=== PATIENT | female | born 1950 | race Caucasian/White ===

== ENCOUNTER 2018-12-18 08:46 | Inpatient (IN) | payer OTHER ==
[2018-12-18] MEDS ORDERED: NA CHLORIDE 0.9% 500 ML ONE (09:18)
[2018-12-18] MEDS ORDERED: ONDANSETRON 4 MG/2 ML VIAL ONE ×2 (09:18→13:03)
[2018-12-18 09:30] LABS: Absolute Lymphocytes (CBC) 0.9 K/uL (0.7-4.9); Absolute Monocytes 0.7 K/uL (0.1-1.3); Basophils % 0.2 % (0-1.3); Eosinophils % 0.3 % (0-4.4); Hematocrit 47.8 % (36.0-45.0); MPV 8.4 fL (7.6-11.3); Monocytes % 6.2 % (3.3-12.3); RBC Red Blood Cell Count 5.28 M/uL (3.86-4.86)
[2018-12-18 09:59] LABS: Albumin 4.5 g/dL (3.4-5.0); Bilirubin Direct 0.2 mg/dL (0-0.2); Bilirubin Total 1.3 mg/dL (0.2-1.0)
[2018-12-18 10:25] LABS: Blood Morphology Comment NOT SEEN (NOT SEEN); Platelet Estimate ADEQ; Urine White Blood Cell Casts OK
[2018-12-18] MEDS ORDERED: PROMETHAZINE 25 MG/ML VIAL ONE ×2 (10:31→11:35)
--- NOTE | 2018-12-18 11:58 | RAD REPORT ---
EXAM DESCRIPTION: CT - Abdomen Pelvis W Contrast - 12/18/2018 11:42 am CLINICAL HISTORY: Abdominal pain. vomiting COMPARISON: None. TECHNIQUE: Computed axial tomography of the abdomen and pelvis was obtained. 100 cc Isovue-300 is ad ministered intravenously. Oral contrast was given. All CT scans are performed using dose optimization technique as appropriate and may include automated exposure control or mA/KV adjustment according to patient size. FINDINGS: The gallbladder has been removed. Mild prominence of the intrahepatic biliary tree may be physiologic . The liver, spleen, pancreas, adrenals and kidneys appear unremarkable. Small right renal cyst The stomach is distended. Marked dilatation of jejunum and portion of the ileum is present. Mid and distal ileum is decompresse d. A small amount of ascites A 16 millimeter left adrenal mass IMPRESSION: High-grade small bowel obstruction 16 millimeter left adrenal mass. Further evaluation with MRI could be obtained to rule in an adenoma
--- NOTE | 2018-12-18 12:19 | ER ---
Nurse's Notes [facility] Name: Cady Salgado Age: 68 yrs Sex: Female : 1950 Arrival Date: 12/18/2018 Time: 08:49 Bed 16 Private MD: out of town, doctor Diagnosis: Small Bowel Obstruction Presentation: 12/18 08:54 Presenting complaint: Patient states: abd pain since yesterday and vomiting today. aa5 08:54 Transition of care: patient was not received from another setting of care. Onset of aa5 symptoms was December 2018. Risk Assessment: Do you want to hurt yourself or someone else? Patient reports no desire to harm self or others. Initial Sepsis Screen: Does the patient meet any 2 criteria? No. Patient's initial sepsis screen is negative. Does the patient have a suspected source of infection? No. Patient's initial sepsis screen is negative. Care prior to arrival: None. 08:54 Method Of Arrival: Ambulatory aa5 08:54 Acuity: JAY 3 aa5 Historical: - Allergies: 08:54 Bactrim; aa5 - PMHx: 08:54 Asthma; Hypertension; aa5 - PSHx: 08:54 Cholecystectomy; Ileus/abd adhesions; cataracts; aa5 - Immunization history:: Flu vaccine is up to date. - Social history:: Smoking status: Patient/guardian denies using tobacco. - Family history:: not pertinent. - Ebola Screening: : No symptoms or risks identified at this time. - Hospitalizations: : No recent hospitalization is reported. Screenin:55 Abuse screen: Denies threats or abuse. Nutritional screening: No deficits noted. aa5 Tuberculosis screening: No symptoms or risk factors identified. Fall Risk None identified. Assessment: 08:55 General: Appears uncomfortable, Behavior is calm, cooperative. Pain: Complains of pain aa5 in right upper quadrant and left upper quadrant Pain does not radiate. Pain currently is 3 out of 10 on a pain scale. Quality of pain is described as burning, Pain began 1 day ago. Is continuous. Neuro: Level of Consciousness is awake, alert, obeys commands, Oriented to person, place, time, situation. Cardiovascular: Heart tones S1 S2 present Rhythm is regular. Respiratory: Airway is patent Respiratory effort is even, unlabored, Respiratory pattern is regular, symmetrical. GI: Abdomen is round non-distended, Last BM was December 17, 2018. Bowel sounds present X 4 quads. Abd is soft X 4 quads Abdomen is tender to palpation in right upper quadrant, left upper quadrant, right lower quadrant and left lower quadrant Reports nausea, vomiting, Patient currently denies diarrhea. : No signs and/or symptoms were reported regarding the genitourinary system. EENT: No signs and/or symptoms were reported regarding the EENT system. Derm: Skin is pink, warm \T\ dry. Musculoskeletal: Range of motion: intact in all extremities. 09:30 Reassessment: Patient is alert, oriented x 3, equal unlabored respirations, skin aa5 warm/dry/pink. Oral contrast at bedside, pt instructed not to drink at this time until nausea has improved, pt verbalized understanding. . 09:47 General: Appears in no apparent distress. uncomfortable, Behavior is calm, cooperative, hj appropriate for age. Pain: Complains of pain in left lower quadrant and right lower quadrant and left upper quadrant and right upper quadrant Pain currently is 3 out of 10 on a pain scale. Quality of pain is described as burning, Pain began 1 day ago. Is continuous. Neuro: Level of Consciousness is awake, alert, obeys commands, Oriented to person, place, time, situation, Appropriate for age. Cardiovascular: Heart tones S1 S2 present Rhythm is regular. Respiratory: Airway is patent Respiratory effort is even, unlabored, Respiratory pattern is regular, symmetrical. GI: Abdomen is round non-distended, Bowel sounds present X 4 quads. Abd is soft X 4 quads Abdomen is tender to palpation Reports lower abdominal pain, upper abdominal pain, nausea. : No signs and/or symptoms were reported regarding the genitourinary system. EENT: No signs and/or symptoms were reported regarding the EENT system. Derm: No signs and/or symptoms reported regarding the dermatologic system. Musculoskeletal: No signs and/or symptoms reported regarding the musculoskeletal system. 10:09 Reassessment: Patient is alert, oriented x 3, equal unlabored respirations, skin hj warm/dry/pink. pt still drinking the oral contrast; able to tolerate it;. 10:18 Reassessment: Patient is alert, oriented x 3, equal unlabored respirations, skin hj warm/dry/pink. able to finished contrast; biodiesel processing technician informed;. 11:51 Reassessment: per biodiesel processing technician, pt vomited x [address] started;. hj 13:38 Reassessment: surgeon in room with pt and family for POC;. hj 14:54 Reassessment: Patient and/or family updated on plan of care and expected duration. Pain hj level reassessed. Patient is alert, oriented x 3, equal unlabored respirations, skin warm/dry/pink. Patient states feeling better. Patient states symptoms have improved. Vital Signs: 09:00 BP 121 / 90; Pulse 74; Resp 18 S; Temp 97.6(O); Pulse Ox 100% on R/A; Weight 64.41 kg aa5 (R); Height 5 ft. 8 in. (172.72 cm) (R); Pain 3/10; 10:10 BP 127 / 95; Pulse 66; Resp 18; Pulse Ox 100% on R/A; hj 11:05 BP 125 / 89; Pulse 65; Resp 18; Pulse Ox 100% on R/A; hj 12:30 BP 135 / 85; Pulse 75; Resp 18; Pulse Ox 100% on R/A; hj 13:37 BP 163 / 87; Pulse 71; Resp 18; Pulse Ox 96% on R/A; hj 14:53 BP 108 / 90; Pulse 64; Resp 18; Pulse Ox 98% on R/A; hj 09:00 Body Mass Index 21.59 (64.41 kg, 172.72 cm) aa5 ED Course: 08:49 Patient arrived in ED. mr 08:49 out of town, doctor is Private Physician. mr 08:53 Arm band placed on Patient placed in an exam room, on a stretcher. aa5 08:54 Darwin Farmer MD is Attending Physician. rn 09:01 Verena Avila, ELAINE is Primary Nurse. aa5 09:02 Triage completed. aa5 09:21 Patient has correct armband on for positive identification. Placed in gown. Bed in low 5 position. Call light in reach. Side rails up X 1. Adult w/ patient. Warm blanket given. Pulse ox on. NIBP on. 09:21 Initial lab(s) drawn, by ky, sent to lab. Inserted saline lock: 22 gauge in left 5 antecubital area, using aseptic technique. Blood collected. 09:22 Basic Metabolic Panel Sent. mh5 09:22 CBC with Diff Sent. 5 09:22 Hepatic Function Sent. 5 09:22 Lipase Sent. [facility] 09:28 Inserted saline lock: 20 gauge in right antecubital area, using aseptic technique. aa5 Flushed 22 G L AC with saline and pt c/o pain to site, swelling noted to site, 22 G to L AC dc'd, catheter intact, pressure dressing applied. 09:42 Report given to Chevy Casanova RN. aa5 11:41 CT completed. Patient tolerated procedure well. Patient moved to CT via stretcher. jg6 Patient moved back from CT. 11:42 CT Abd/Pelvis - W/Contrast In Process Unspecified. EDNE 12:19 Elfego Vick MD is Hospitalizing Provider. rn 13:31 NGT: inserted 12 Fr. verified placement of air over stomach, verified return of gastric jl7 contents, to intermittent suction. Returned gastric contents. Patient tolerated well. Administered Medications: 09:28 Drug: Zofran 4 mg Route: IVP; Site: right antecubital; 5 09:35 Follow up: Response: No adverse reaction; Nausea is decreased 09:28 Drug: NS 0.9% 500 ml Route: IV; Rate: bolus; Site: right antecubital; aa5 09:35 Follow up: IV Status: Infusion continued 10:24 Drug: Phenergan 12.5 mg Route: IVP; Site: right antecubital; hj 11:22 Follow up: Response: No adverse reaction; Nausea unchanged 11:24 Drug: Phenergan 12.5 mg Route: IVP; Site: right antecubital; hj 11:26 Follow up: Response: No adverse reaction; Nausea is decreased Outcome: 12:19 Decision to Hospitalize by Provider. rn 15:19 Patient left the ED. iw Signatures: Dispatcher [employer] EDNE Nayeli Orellana Irene, RN RN iw Nieto, Roman, MD MD rn Calderon, Audri, RN RN aa5 Joaquin, Henry, RN RN hj Martinez, Maria Nely Wu RN RN jl7 Clara Allison jg6 Corrections: (The following items were deleted from the chart) 09:08 09:00 BP 121 / 90; Pulse 74bpm; Resp 18bpm; Spontaneous; Pulse Ox 100% RA; 64.41 kg aa5 Reported; Height 5 ft. 8 in. Reported; BMI: 21.5; Pain 3/10; aa5
--- NOTE | 2018-12-18 12:19 | EDPHYS ---
Physician Documentation [facility] Name: Cady Salgado Age: 68 yrs Sex: Female : 1950 Arrival Date: 12/18/2018 Time: 08:49 Bed 16 Private MD: out of town, doctor ED Physician Darwin Farmer HPI: 12/18 09:02 This 68 yrs old Female presents to ER via Ambulatory with complaints of rn Vomiting, Abdominal Pain. 09:02 The patient presents to the emergency department with nausea, vomiting, abdominal pain. rn Onset: The symptoms/episode began/occurred yesterday. Possible causes: unknown. The symptoms are aggravated by nothing. The symptoms are alleviated by nothing. Severity of symptoms: At their worst the symptoms were moderate in the emergency department the symptoms are unchanged. The patient has experienced similar episodes in the past. REports several episodes in past, has had combinations of ileus and volvulus, reports is traveling, began with upper abd pain and vomiting yesterday, no diarrhea, similar to previous episodes. . Historical: - Allergies: 08:54 Bactrim; aa5 - PMHx: 08:54 Asthma; Hypertension; aa5 - PSHx: 08:54 Cholecystectomy; Ileus/abd adhesions; cataracts; aa5 - Immunization history:: Flu vaccine is up to date. - Social history:: Smoking status: Patient/guardian denies using tobacco. - Family history:: not pertinent. - Ebola Screening: : No symptoms or risks identified at this time. - Hospitalizations: : No recent hospitalization is reported. ROS: 09:02 Constitutional: Negative for fever, chills, and weight loss, Eyes: + ongoing eye rn problem Cardiovascular: Negative for chest pain, palpitations, and edema, Respiratory: Negative for shortness of breath, cough, wheezing, and pleuritic chest pain, Abdomen/GI: + abdominal pain/nausea/vomiting, negative for diarrhea MS/Extremity: Negative for injury and deformity, Skin: Negative for injury, rash, and discoloration, Neuro: + generalized weakness Exam: 09:02 Constitutional: This is a well developed, well nourished patient who is awake, alert, rn and in no acute distress. Head/Face: Normocephalic, atraumatic. Eyes: Periorbital areas with no swelling, redness, or edema. ENT: dry MM Respiratory: No increased work of breathing, no retractions or nasal flaring. Abdomen/GI: soft, mild epigastric and LUQ tenderness, no rebound Skin: Warm, dry Neuro: Awake and alert, GCS 15. Vital Signs: 09:00 BP 121 / 90; Pulse 74; Resp 18 S; Temp 97.6(O); Pulse Ox 100% on R/A; Weight 64.41 kg aa5 (R); Height 5 ft. 8 in. (172.72 cm) (R); Pain 3/10; 10:10 BP 127 / 95; Pulse 66; Resp 18; Pulse Ox 100% on R/A; hj 11:05 BP 125 / 89; Pulse 65; Resp 18; Pulse Ox 100% on R/A; hj 12:30 BP 135 / 85; Pulse 75; Resp 18; Pulse Ox 100% on R/A; hj 13:37 BP 163 / 87; Pulse 71; Resp 18; Pulse Ox 96% on R/A; hj 14:53 BP 108 / 90; Pulse 64; Resp 18; Pulse Ox 98% on R/A; hj 09:00 Body Mass Index 21.59 (64.41 kg, 172.72 cm) aa5 MDM: 08:54 Patient medically screened. rn 12:18 Differential diagnosis: bowel obstruction. Data reviewed: vital signs, nurses notes, information technology internship test result(s), radiologic studies, CT scan, and as a result, I will admit patient. Counseling: I had a detailed discussion with the patient and/or guardian regarding: the historical points, exam findings, and any diagnostic results supporting the discharge/admit diagnosis, lab results, radiology results, the need for further work-up and treatment in the hospital. Response to treatment: the patient's symptoms have mildly improved after treatment, and as a result, I will admit patient. Admission orders: after a detailed discussion of the patient's condition and case, the admit orders are written by me. ED course: Consulted with Dr. Vick, will admit to his service, requested NG tube, and will visit with patient shortly. . 12/18 09:02 Order name: Basic Metabolic Panel; Complete Time: 10:29 rn 12/18 09:02 Order name: CBC with Diff; Complete Time: 10:29 rn 12/18 09:02 Order name: Hepatic Function; Complete Time: 10:29 rn 12/18 09:02 Order name: Lipase; Complete Time: 10:29 rn 12/18 09:02 Order name: CT Abd/Pelvis - W/Contrast; Complete Time: 12:03 rn 12/18 09:32 Order name: CBC Smear Scan; Complete Time: 10:29 EDMS 12/18 09:02 Order name: IV Saline Lock; Complete Time: 09:22 rn 12/18 09:02 Order name: Labs collected and sent; Complete Time: 09:22 rn 12/18 13:31 Order name: XRAY Abdomen 1 View (KUB) 12/18 14:29 Order name: RAD EDMS 12/18 12:04 Order name: NG Tube; Complete Time: 13:30 rn Administered Medications: 09:28 Drug: Zofran 4 mg Route: IVP; Site: right antecubital; aa5 09:35 Follow up: Response: No adverse reaction; Nausea is decreased 09:28 Drug: NS 0.9% 500 ml Route: IV; Rate: bolus; Site: right antecubital; aa5 09:35 Follow up: IV Status: Infusion continued hj 10:24 Drug: Phenergan 12.5 mg Route: IVP; Site: right antecubital; hj 11:22 Follow up: Response: No adverse reaction; Nausea unchanged hj 11:24 Drug: Phenergan 12.5 mg Route: IVP; Site: right antecubital; hj 11:26 Follow up: Response: No adverse reaction; Nausea is decreased Disposition: 12/18/18 12:19 Hospitalization ordered by Elfego Vick for Inpatient Admission. Preliminary diagnosis is Small Bowel Obstruction. - Bed requested for Telemetry/MedSurg (Inpatient). - Status is Inpatient Admission. iw - Condition is Stable. - Problem is new. - Symptoms have improved. UTI on Admission? No Signatures: Dispatcher [employer] EDMS Louisa Spear Irene, Darwin Fowler RN, MD MD rn Calderon, Audri, RN RN aa5 Chevy Casanova RN RN Corrections: (The following items were deleted from the chart) 14:39 12:19 Hospitalization Ordered by Elfego Vick MD for Inpatient Admission. Preliminary bd diagnosis is Small Bowel Obstruction. Bed requested for Telemetry/MedSurg (Inpatient). Status is Inpatient Admission. Condition is Stable. Problem is new. Symptoms have improved. UTI on Admission? No. rn 15:19 14:39 12/18/2018 12:19 Hospitalization Ordered by Elfego Vick MD for Inpatient iw Admission. Preliminary diagnosis is Small Bowel Obstruction. Bed requested for Telemetry/MedSurg (Inpatient). Status is Inpatient Admission. Condition is Stable. Problem is new. Symptoms have improved. UTI on Admission? No. bd
[2018-12-18] MEDS ORDERED: LIDOCAINE VISCOUS 2% SOLN 15 ML UDC ONE (13:29)
[2018-12-18] MEDS ORDERED: D5 0.45 NS 1,000 ML IV ONE (13:47)
--- NOTE | 2018-12-18 14:28 | RAD REPORT ---
EXAM DESCRIPTION: RAD - Chest Single View - 12/18/2018 2:23 pm CLINICAL HISTORY: POST NG PLACEMENT Chest pain. COMPARISON: Abdomen Pelvis W Contrast dated 12/18/2018 FINDINGS: Portable technique limits examination quality. Tip of the enteric tube is in the stomach. No pneumoperitoneum seen. Linear atelectasis is present le ft lung base. The lungs are diffusely emphysematous.
[2018-12-18] MEDS: D5 0.45 NS 1,000 ML IV SCH ×2 (15:06→22:59)
[2018-12-18] MEDS: ONDANSETRON 4 MG/2 ML VIAL IV PRN (17:01)
[2018-12-18] MEDS: MORPHINE 4 MG/ML SYR IV PRN (17:02)
--- NOTE | 2018-12-18 21:01 | P.CNS ---
Date of Consult: 12/18/18 PC: I was asked see this 68-year-old female in regards to a possible bowel obstruction. HPC: Patient is from out of state, down here visiting. Had a long drive. Last night a some asparagus. Today she knows she is having increasing pain and discomfort in her abdomen. She says she has actually been uncomfortable for the last 3 or 4 days but the last night and today the pain intensified she in no longer stand it began having excessive vomiting. PMH: Cataract surgery PSHx: Previous cholecystectomy, previous exploratory laparotomy for small- bowel obstruction secondary to adhesions. SOC: Allergic to Bactrim SYS REVIEW: No cough, wheeze, shortness of breath. No chest pain or palpitations. States that she has been a very low residue diet as this bowel obstruction is a quite common occurrence for her back and her hometown which she has regard is a frequent Flyer with this issue as she describes it. Denies any urinary complaints. O/E awake alert more comfortable at the moment she states HEENT: Nasogastric tube in position pulling out green bile Chest: Chest movement equal bilaterally ABD: Mildly distended no masses LOCO: Intact DATA: White cell count normal, CT scan suggests small bowel obstruction IMPRESSION: Partial small-bowel obstruction PLAN: Patient will be admitted for IV fluids, nasogastric tube. Hopefully this will issue will resolve by itself. She does not require surgical intervention at the moment, we will follow her closely.
[2018-12-18 23:46] LABS: Urine Appearance CLEAR; Urine Blood NEGATIVE (NEG); Urine Color DK YELLOW; Urine Glucose NEGATIVE (NEG); Urine Protein TRACE (NEG); Urine Specific Gravity >=1.030 (1.005-1.030); Urine Urobilinogen 0.2 mg/dL (0.2-1.0); Urine pH 5.5 (5.0-7.0)
[2018-12-18 23:53] LABS: Urine Bilirubin NEGATIVE (NEG); Urine Microscopic Reflex ORDER UMIC
[2018-12-19] MEDS ORDERED: MINERAL OIL 30 ML UCUP PO ONE
[2018-12-19 00:39] LABS: Urine RBC NONE SEEN /HPF (NONE SEEN)
[2018-12-19 00:40] LABS: Urine Bacteria <20 /HPF (<20)
[2018-12-19] MEDS: D5 0.45 NS 1,000 ML IV SCH ×3 (05:45→20:42)
[2018-12-19 06:03] LABS: Absolute Lymphocytes (CBC) 1.1 K/uL (0.7-4.9); Absolute Monocytes 0.9 K/uL (0.1-1.3); Absolute Neutrophil 5.6 K/uL (1.8-8.0); Basophils % 0.2 % (0-1.3); Eosinophils % 1.8 % (0-4.4); Lymphocytes % 14.1 % (15.3-44.8); MPV 8.4 fL (7.6-11.3); Monocytes % 11.1 % (3.3-12.3); RBC Red Blood Cell Count 4.77 M/uL (3.86-4.86)
[2018-12-19 06:21] LABS: Potassium 4.2 mmol/L (3.5-5.1)
--- NOTE | 2018-12-19 12:51 | P.PN ---
Date of Service: 12/19/18 S: Patient feels somewhat better today. Pain is less. Still has some nausea. No bowel movement. Says she does not feel any gas or movement in her abdomen. O: 850 up to the nasogastric tube. Patient clinically admeasurer. Abdomen is soft, no guarding or rebound. A: Patient is surgically stable at the moment. It appears that her ileus may be resolving. Continue current therapy. P: Continue IV fluids, nasogastric tube, will reassess in the a.m..
[2018-12-19] MEDS ORDERED: MINERAL OIL 30 ML UCUP GT ONE (12:52)
[2018-12-19] MEDS: ONDANSETRON 4 MG/2 ML VIAL IV PRN (16:03)
[2018-12-19] MEDS ORDERED: MINERAL OIL 30 ML UCUP FT ONE (20:00)
[2018-12-19] MEDS: METOCLOPRAMIDE 10 MG/2mL INJ IV PRN (21:56)
[2018-12-20] MEDS: D5 0.45 NS 1,000 ML IV SCH ×4 (05:45→23:06)
[2018-12-20] MEDS: ONDANSETRON 4 MG/2 ML VIAL IV PRN ×2 (10:18→20:25)
[2018-12-20] MEDS: METOCLOPRAMIDE 10 MG/2mL INJ IV PRN (11:57)
--- NOTE | 2018-12-20 12:29 | RAD REPORT ---
EXAM DESCRIPTION: CT - Abdomen Pelvis Wo Contrast - 12/20/2018 12:09 pm CLINICAL HISTORY: Abdominal pain, small bowel obstruction COMPARISON: CT December 18 TECHNIQUE: Axial [address] imaging of the abdomen and pelvis was performed without IV contrast. No IV contrast was given because of allergy, abnormal renal function, patient refusal or physician re quest. Oral contrast administered via NG tube. All CT scans are performed using dose optimization technique as appropriate and may include automated exposure control or mA/KV adjustment according to patient size. FINDINGS: No suspicious findings in the lung bases. The liver, spleen and pancreas show no suspicious findings on non-contrast imaging. Gallbladder is ab sent. No biliary tree dilatation. No hydronephrosis or suspicious renal mass. Probable small cyst upper pole right kidney. No significa nt adrenal finding. Isodense renal masses and pyelonephritis cannot be excluded in the absence of IV contrast. Urinary bladder is mostly contracted. No suspicious finding. Uterus and ovaries show no lon picious findings for age. NG tube is in place. Stomach is mildly distended by the administered oral contrast. Oral CT contrast extends into the proximal jejunum. Again noted are significantly dilated loops of jejunum. Dilatation has progressed. No colon dilatation. There is moderate stool volume scattered within the colon as we ll as some hyperdense material is possibly the oral contrast from the December 18 imaging. Distal small b owel is decompressed. Two transition points are present in the central mid abdomen. Internal hernia o r adhesions suspected. This is suspected to be a closed loop obstruction. No free air, free fluid or inflammatory stranding. No hernia, mass or bulky lymphadenopathy. No suspicious bony findings. IMPRESSION: Worsening small bowel obstruction with further dilatation of the jejunum. Two transition points are identifiable in the central abdomen and closed loop obstruction is suspected from adhesio ns or internal hernia. No free air or pneumatosis. Full assessment is limited is the absence of IV contrast.
[2018-12-20] MEDS ORDERED: MIDAZOLAM HCL 2 MG/2 ML INJ ONE (14:03)
[2018-12-20] MEDS ORDERED: LIDOCAINE 2% MPF 5 ML VIAL ONE (14:03)
[2018-12-20] MEDS ORDERED: PROPOFOL 200 MG/20 ML VIAL IV ONE (14:03)
[2018-12-20] MEDS ORDERED: ROCURONIUM 50 MG/5 ML VIAL IV ONE (14:04)
[2018-12-20] MEDS ORDERED: FENTANYL CITR 250 MCG/5 ML ONE (14:04)
[2018-12-20] MEDS ORDERED: ONDANSETRON 4 MG/2 ML VIAL ONE (14:04)
[2018-12-20] MEDS ORDERED: NA CHLORIDE 0.9% 0 ML ONE (14:33)
[2018-12-20] MEDS ORDERED: Ringers Lactate 1,000 ML IV ONE ×2 (14:33→14:58)
--- NOTE | 2018-12-20 14:51 | P.PN ---
Date of Service: 12/20/18 S: Patient reports no improvement today. States she feels she may be getting weak. Still has had feeling of pressure in her upper abdomen. O: Abdomen is soft out laterally but still has that firmness to the center portion around midline A: Patient had a high output from her nasogastric tube last night. Almost 800 residual on 12 are shift. I do not feel we remain any progresses the patient admission. I am going to order a CT scan and if positive for continuing obstruction I will take her to the operating room for exploratory laparotomy. I have explained this to the patient and her . My concerns were possible vascular compromise or the fact that the patient has been NPO for almost 48 hr and no progresses truly been made. They understand and want to proceed. P: CT scan of the abdomen and pelvis. If no marked improvement, will take to the OR for exploratory laparotomy and indicated procedures.
[2018-12-20] MEDS ORDERED: CEFOXITIN/SWI 1gm 1 GM/10 ML SYR IVP ONE (15:00)
[2018-12-20] MEDS ORDERED: EPHEDRINE SULF 50 MG/10 ML SYR ONE (15:43)
[2018-12-20] MEDS ORDERED: NEOSTIGMINE 1 MG/ML -10 ML VIAL ONE (16:46)
[2018-12-20] MEDS ORDERED: GLYCOPYRROLATE 0.2 MG/ML SYR ONE (16:46)
--- NOTE | 2018-12-20 16:54 | P.OP ---
Preoperative diagnosis: Bowel obstruction Postoperative diagnosis: The same Primary procedure: Exploratory laparotomy Secondary procedure: Lyses of extensive intra-abdominal adhesions Anesthesia: General Estimated blood loss: Less than 20 cc Specimen: No specimen Operative Technique: The patient brought the operating room and placed supine on the table. After the induction of adequate general endotracheal anesthesia, the area of the abdomen was prepped and draped in usual aseptic manner. Attention was turned towards the patient's abdomen. In the upper portion of her midline incision 1 could feel a mass in this area. We entered the peritoneal cavity by coming from the bottom of our incision. A skin incision was made from just above the pubic symphysis to the umbilicus. This brought down through the skin and subcutaneous tissue. The rectus muscle was divided in the midline in a posterior sheath was grasped between hemostats sharply incised well access to the peritoneal cavity. By coming from the inferior direction we were able a trace upper old incision up towards the umbilicus. Gentle adhesions were taken down in this area. There is some some all bowel loops that were adherent to the anterior abdominal wall. These were taken down using blunt sharp dissection. In the upper portion of the abdomen there was an area of chronic adhesions. Around this bowel had partially twisted creating a close loop obstruction. These adhesions were taken down using blunt sharp dissection. The small bowel was now run from the ligament of Treitz down towards the ileocecal valve. There were adhesions of the small bowel to the descending colon. These were taken down using blunt sharp dissection. The sigmoid colon is markedly redundant in this patient and was also adherent to a portion of the jejunum. Once again these were lysed in a careful manner to ensure adequate hemostasis. The ileocecal bowel was inspected. This is not really a true ileocecal valve as the patient has had a right hemicolectomy in the past. It is a [id number] functional and end-to-end anastomosis. Adhesions in this area were taken down. The omentum was also adherent to the small bowel in the upper portion of the abdomen. This was taken down once again using blunt sharp dissection. At this point the abdomen is irrigated with a saline solution. Once again the bowel was run from the ligament of Treitz down to the distal ileum. The intestines were returned to their normal anatomical position. The sigmoid care colon was carefully laid inside and behind the small bowel to try and put it back in its normal anatomical position. The transverse colon was laid over the top of the bowel and as well as the remaining portion of the omentum. The midline incision was now closed with a running suture of 0 looped nylon. At this point. Gillian were applied to the skin of the procedure the patient was in a stable condition when sent to the recovery room. Needle sponge instrument count were correct. No drains were placed. Complications: None Drain(s): Nasogastric Transferred to: Recovery Room Condition: Good
[2018-12-20] MEDS: HYDROMORPHONE HCL 1 MG/ML INJ ONE ×2 (17:05→17:13)
[2018-12-20] MEDS: MORPHINE 4 MG/ML SYR IV PRN (20:24)
[2018-12-21] MEDS: MORPHINE 4 MG/ML SYR IV PRN ×3 (03:09→22:57)
[2018-12-21] MEDS: ONDANSETRON 4 MG/2 ML VIAL IV PRN (03:09)
[2018-12-21] MEDS: D5 0.45 NS 1,000 ML IV SCH ×4 (03:41→22:08)
[2018-12-21] MEDS ORDERED: NA CHLORIDE 0.9% 500 ML IV ONE (06:21)
[2018-12-21] MEDS ORDERED: MINERAL OIL 30 ML UCUP PO ONE (12:45)
--- NOTE | 2018-12-21 13:05 | P.PN ---
Date of Service: 12/21/18 S: The patient apparently had been doing well earlier this morning at lunchtime now is very distress. Unable to void. Abdomen is soft, vital signs are stable O: Incisions clean, has obvious urinary retention. Minimal out through nasogastric tube last night A: Surgically stable P: Continue to aggressively mobilize this patient. We placed a Mazariegos catheter and got around 600 cc out right now. There is minimal drainage from the NG tube we will place some mineral oil then Dc NG tube. We will continue the IV fluids but will allow her access to ice chips and popsicles and this evening after her nasogastric tube is been discontinued should be started on clear liquids.
[2018-12-22 06:21] LABS: Absolute Neutrophil 3.5 K/uL (1.8-8.0); Basophils % 0.4 % (0-1.3); Eosinophils % 6.3 % (0-4.4); Hematocrit 36.7 % (36.0-45.0); Lymphocytes % 17.1 % (15.3-44.8); MPV 8.6 fL (7.6-11.3); Monocytes % 17.6 % (3.3-12.3); RBC Red Blood Cell Count 4.06 M/uL (3.86-4.86)
[2018-12-22 06:34] LABS: Potassium 3.7 mmol/L (3.5-5.1)
[2018-12-22 06:51] LABS: Urine Culture Reflex Order REFLEXED
[2018-12-22 08:51] LABS: Blood Morphology Comment NOT SEEN (NOT SEEN); Platelet Estimate ADEQ
[2018-12-22] MEDS ORDERED: PROMETHAZINE 25 MG/ML VIAL IV PRN (12:28)
[2018-12-22] MEDS ORDERED: TRAMADOL HCL 50 MG TAB PO PRN (12:29)
[2018-12-22] MEDS: MORPHINE 4 MG/ML SYR IV PRN (12:33)
[2018-12-22] MEDS: METOCLOPRAMIDE 10 MG/2mL INJ IV PRN (12:33)
[2018-12-22] MEDS: D5 0.45 NS 1,000 ML IV SCH ×2 (12:43→21:25)
[2018-12-22] MEDS ORDERED: BISACODYL 10 MG RECTAL SUPP PR ONE (20:14)
[2018-12-23] MEDS: D5 0.45 NS 1,000 ML IV SCH ×3 (05:53→23:06)
[2018-12-23 06:19] LABS: Absolute Neutrophil 3.4 K/uL (1.8-8.0); Basophils % 0.5 % (0-1.3); Eosinophils % 4.3 % (0-4.4); Hematocrit 36.6 % (36.0-45.0); Lymphocytes % 17.2 % (15.3-44.8); MPV 8.7 fL (7.6-11.3); Monocytes % 17.1 % (3.3-12.3); RBC Red Blood Cell Count 4.06 M/uL (3.86-4.86)
[2018-12-23 06:36] LABS: Albumin 2.8 g/dL (3.4-5.0); Potassium 3.1 mmol/L (3.5-5.1); Protein, Total 6.8 g/dL (6.4-8.2)
[2018-12-23 07:38] LABS: Blood Morphology Comment NOT SEEN (NOT SEEN); Platelet Estimate ADEQ; Urine White Blood Cell Casts OK
[2018-12-23] MEDS: METOCLOPRAMIDE 10 MG/2mL INJ IV PRN (08:21)
[2018-12-23] MEDS ORDERED: POTASSIUM CL 40 MEQ in NA CHLORIDE 0.9% 500 ML IV SCH (11:00)
--- NOTE | 2018-12-23 13:59 | P.PN ---
Date of Service: 12/23/18 S: The patient has no specific complaints today. Concern that if the nasogastric tube is discontinue that it may have to be reinserted. States that she feels occasional cramp. O: Vital signs are stable, last residual was 100 cc via nasogastric tube. Incisions are clean. Surgically stable, postoperative ileus appears to be resolving PE: Correct hypokalemia, check residual at 6:00 p.m. if less than 100 will Dc the NG tube continued ambulate, encourage incentive spirometry anticipate discharge in the next 48 hr.
[2018-12-23] MEDS: ENSURE CLEAR 200 ML CAN PO SCH (21:00)
[2018-12-23] MEDS ORDERED: NA CHLORIDE 0.9% 250 ML ONE (21:49)
[2018-12-23] MEDS ORDERED: KCL 20 MEQ/100 mL IVPB 20 MEQ/100 ML BAG IV SCH (22:00)
[2018-12-24] MEDS: D5 0.45 NS 1,000 ML IV SCH (04:08)
[2018-12-24 06:49] LABS: BUN Blood Urea Nitrogen 11 mg/dL (7-18); Bicarbonate 25 mmol/L (21-32); Glucose Level 113 mg/dL (74-106); Potassium 3.7 mmol/L (3.5-5.1); Sodium Level 141 mmol/L (136-145)
[2018-12-24] MEDS ORDERED: KCL 20 MEQ/100 mL IVPB 20 MEQ/100 ML BAG IV SCH (08:00)
[2018-12-24] MEDS: METOCLOPRAMIDE 10 MG/2mL INJ IV PRN (08:05)
[2018-12-24] MEDS: ENSURE CLEAR 200 ML CAN PO SCH (08:18)
[2018-12-24] MEDS ORDERED: CITALOPRAM 10 MG TABLET PO SCH (21:00)
[2018-12-24] MEDS ORDERED: METOCLOPRAMIDE 5 MG TAB PO SCH (21:00)
[2018-12-24] MEDS ORDERED: FLUTICASONE PROPIONATE 250 MCG IH SCH (21:00)
[2018-12-24] MEDS ORDERED: CALCIUM CARBONATE PO SCH (21:00)
[2018-12-24] MEDS ORDERED: [UNRECOGNIZED DRUG - OTHER] PO SCH (21:00)
[2018-12-24] MEDS ORDERED: HOME MED 1 EA UNK (Levocetirizine Dihydrochloride [Xyzal] 5 MG) PO SCH (21:00)
[2018-12-24] MEDS ORDERED: PHYTONADIONE PO SCH (21:00)
[2018-12-25] MEDS ORDERED: [UNRECOGNIZED DRUG - OTHER] MC SCH (09:00)
[2018-12-25] MEDS ORDERED: FLUTICASONE PROPIONATE MC SCH (09:00)
[2018-12-25] MEDS ORDERED: HOME MED 1 EA UNK (L.Acidoph,Paracasei, B.Lactis [Probiotic] 1 EACH) PO SCH (09:00)
[2018-12-25] MEDS ORDERED: MONTELUKAST 10 MG TAB PO SCH (09:00)
[2018-12-25] MEDS ORDERED: EPA PO SCH (09:00)
[2018-12-25] MEDS ORDERED: CETIRIZINE HCL 5 MG TABLET PO SCH (09:00)
[2018-12-25] MEDS ORDERED: FISH OIL PO SCH (09:00)
[2018-12-25] MEDS ORDERED: AMLODIPINE 5 MG TAB PO SCH (09:00)
[2018-12-25] MEDS ORDERED: [UNRECOGNIZED DRUG - OTHER] PO SCH (09:00)
[2018-12-25] MEDS ORDERED: DHA PO SCH (09:00)
[2018-12-25] MEDS ORDERED: CETIRIZINE HCL PO SCH (09:00)
[2018-12-25] MEDS ORDERED: PSEUDOEPHEDRINE PO SCH (09:00)
== END 2018-12-24 14:38 | disposition home or self-care (01) | DRG 337 ==
LOC: ER 08:46 → ERHOLD 12:22 → 2ND 15:05
PROVIDERS: ADMIT Surgery; ATTEND Surgery
PROC: 0D9670Z Drainage of Stomach with Drainage Device, Via Natural or Artificial Opening (ICD-10-PCS; principal; 2018-12-18)
PROC: 0DNM0ZZ Release Descending Colon, Open Approach (ICD-10-PCS; 2018-12-20)
PROC: 0DN80ZZ Release Small Intestine, Open Approach (ICD-10-PCS; 2018-12-20)
PROC: 0DNN0ZZ Release Sigmoid Colon, Open Approach (ICD-10-PCS; 2018-12-20)
PROC: 0DNA0ZZ Release Jejunum, Open Approach (ICD-10-PCS; 2018-12-20)
PROC: 0DNC0ZZ Release Ileocecal Valve, Open Approach (ICD-10-PCS; 2018-12-20)
DX: K56.600 Partial intestinal obstruction, unspecified as to cause (principal); R33.9 Retention of urine, unspecified; E87.6 Hypokalemia
CPT/HCPCS: 36415; 71045; 74176; 74177; 80048; 80053; 80076; 81003; 81015; 82962; 83690; 84132; 85025; 87077; 87086; 87088; 87186; 96374; 96375; 99285; J1170; J2250; J2405; J2550; J2704; J2710; J2765; J3010; J7030; Q9967